=== PATIENT | male | born 1950 | race Caucasian/White ===

== ENCOUNTER 2023-08-05 06:04 | Day surgery (SDC) | payer MEDICAID, SELFPAY ==
[2023-06-12 09:39] VITALS: BMI 27.8
[2023-06-12 10:20] LABS: % Basophils 0.8 % (0-2); % Eosinophils 5.7 % (0-6); % Immature Granulocytes 0.2 % (0-0.5); % Lymphocytes 30.3 % (20.5-51.1); Absolute Eosinophils 0.3 10^3/uL (0-0.7); Absolute Lymphocytes 1.5 10^3/uL (1.2-3.4); Absolute Monocytes 0.6 10^3/uL (0.1-0.6); Absolute Neutrophils 2.7 10^3/uL (1.4-6.5); Hematocrit 44.1 % (39.0-52.0); Hemoglobin 15.2 g/dL (13.0-18.0); Mean Corp Hgb Conc. 34.5 g/dL (33.0-37.0); Mean Corpuscular Hgb 30.2 pg (27.0-31.0); Mean Corpuscular Volume 87.5 fL (80.0-94.0); Nucleated Red Blood Cells % 0 % (-); Platelet Count 176 10^3/uL (130-400); Red Blood Cell Count 5.04 10^6/uL (4.70-6.10); Red Cell Dist. Width 13.7 % (11.5-14.5); White Blood Cell Count 5.1 10^3/uL (4.8-10.8)
[2023-06-12 10:25] LABS: INR 1.45; PT 17.5 Sec (11.4-14.6)
[2023-06-12 10:30] LABS: ALT (SGPT) 18 U/L (0-50); AST (SGOT) 31 U/L (17-59); Albumin 4.5 g/dl (3.5-5.0); Alkaline Phosphatase 63 U/L (38-126); Blood Urea Nitrogen 14 mg/dl (9-20); Calcium 9.4 mg/dl (8.4-10.2); Carbon Dioxide 25 mmol/L (22-30); Chloride 104 mmol/L (98-107); Estimated Creatinine Clearance 89 ml/min; Glucose 106 mg/dl (70-99); Sodium 137 mmol/L (135-145); Total Protein 6.9 g/dl (6.3-8.2); eGFR > 60.00
[2023-06-12 10:35] LABS: Potassium 4.2 mmol/L (3.5-5.1)
[2023-06-12 12:43] LABS: Glycohemoglobin (HgbA1c) 6.1 % (4.0-5.6)
[2023-07-29 10:42] VITALS: BMI 27.1
[2023-07-29 11:21] LABS: % Basophils 0.5 % (0-2); % Eosinophils 3.9 % (0-6); % Immature Granulocytes 0.3 % (0-0.5); % Lymphocytes 24.2 % (20.5-51.1); % Monocytes 9.6 % (1.7-9.3); % Neutrophils 61.5 % (42.2-75.2); Absolute Eosinophils 0.3 10^3/uL (0-0.7); Absolute Lymphocytes 1.6 10^3/uL (1.2-3.4); Absolute Monocytes 0.6 10^3/uL (0.1-0.6); Hematocrit 49.5 % (39.0-52.0); Hemoglobin 16.5 g/dL (13.0-18.0); Mean Corp Hgb Conc. 33.3 g/dL (33.0-37.0); Mean Corpuscular Hgb 29.9 pg (27.0-31.0); Mean Corpuscular Volume 89.7 fL (80.0-94.0); Mean Platelet Volume 10.2 fL (7.4-10.4); Nucleated Red Blood Cells % 0 % (-); Platelet Count 180 10^3/uL (130-400); Red Blood Cell Count 5.52 10^6/uL (4.70-6.10); Red Cell Dist. Width 13.5 % (11.5-14.5); White Blood Cell Count 6.5 10^3/uL (4.8-10.8)
[2023-07-29 11:30] LABS: INR 1.42; PT 17.4 Sec (11.4-14.6)
--- NOTE | 2023-07-29 11:47 | HPS.HSE ---
Family Physician
-
Family Physician: Madeline Peoples, DO
Chief Complaint
-
AVJ ablation
History of Present Illness
73yo male with a [id number] score of 4 secondary to age, HTN, CAD
and borderline diabetes. Additional cardiac history includes permanent
atrial fibrillation, active tobacco abuse, as well as [employer] Emeterio Biv PPM placed
in [facility] in 2015. He has been experiencing intermittent and consistent
chest discomfort radiating into neck with dyspnea on exertion. Lexiscan
Myoview stress test was completed February 2023 which revealed no
evidence of scar nor ischemia.
Regarding his permanent atrial fibrillation, he has undergone
approximately 30 cardioversions as well as two ablations in 2009
and 2011. These were cryoablations per report. He is currently
maintained on digoxin and carvedilol and anticoagulated with
Xarelto which he is tolerating. Recent echocardiogram revealed
normal biventricular size and systolic function with LVEF 50%.
Device interrogation revealed no atrial lead and potential need for
device upgrade in addition to maintain AV synchrony. AVJ ablation
is advised to allow 100% biventricular pacing and better rate
control. The patient and family, who is translating, are agreeable
to this, and he currently denies chest pain, shortness of breath,
palpitations, fever, chills, nausea, vomiting, or diarrhea at
present.
Medical History
Past Medical History
Past Medical History: Reports Other (see below)
Additional Past Medical History:
1. Persistent symptomatic atrial fibrillation.
2. Hypertension.
3. Hyperlipidemia.
4. Coronary artery disease with recent Myoview stress February 2023
without evidence of ischemia nor scar.�
5. St. Emeterio Biv PPM 2016.
6. Active tobacco abuse.
7. Borderline diabetes.
8. Depression/anxiety.
�
�
Past Surgical History: Reports Other (see below)
Additional Past Surgical History:
Cardioversion approximately x3,
PVI x2 2009 and 2012.�
Social History
Tobacco: Smoker
Alcohol: None
Family History
Family History: Not pertinent
Allergies / Home Medications
Allergies reflects when Allergies were last updated in [employer].
Home Medications with original date entered in [employer]
Allergy/Medication List:
NKDA
HOME MEDICATIONS:��
1. Carvedilol 6.25 mg b.i.d.�
2. Digoxin 250 mcg at bedtime.
3. Paroxetine 20 mg at bedtime.
4. Xarelto 20 mg at bedtime.
Review of Systems
-
A 12 point ROS was completed and negative except as noted: Yes
Physical Exam
Physical Exam
General: Well Developed and Well Nourished
HEENT: NormoCephalic and Anicteric
Respiratory: Clear
Cardiac: S1/S2 and Regular Rhythm
Musculoskeletal: Edema, Left Lower Extremity (varicosities, non-pitting, calf non-tender)
Skin: Dry
Neuro: AO x 3 and Cranial Nerves Intact
Laboratory Results
-
07/29/23 11:08
Laboratory Results
PT 17.4 Sec (11.4-14.6) H 07/29/23 11:08
INR 1.42 07/29/23 11:08
Total Bilirubin 1.0 mg/dl (0.2-1.3) 06/12/23 10:04
AST 31 U/L (17-59) 06/12/23 10:04
ALT 18 U/L (0-50) 06/12/23 10:04
Alkaline Phosphatase 63 U/L (38-126) 06/12/23 10:04
Impression/Plan
-
IMPRESSION AND PLAN:� Persistent, symptomatic atrial fibrillation.
St. Emeterio biventricular permanent pacemaker placed in 2016.
Atrioventricular junction ablation proposed to allow 100%
biventricular pacing and better rate control, possible need for
device upgrade. Benefits and risks have been discussed with
patient's family. These risks are understood. They wished to
proceed.�
[2023-07-29 13:02] LABS: ALT (SGPT) 19 U/L (0-50); AST (SGOT) 30 U/L (17-59); Albumin 4.5 g/dl (3.5-5.0); Alkaline Phosphatase 62 U/L (38-126); Blood Urea Nitrogen 17 mg/dl (9-20); Calcium 9.8 mg/dl (8.4-10.2); Carbon Dioxide 23 mmol/L (22-30); Chloride 106 mmol/L (98-107); Estimated Creatinine Clearance 92 ml/min; Glucose 112 mg/dl (70-99); Magnesium 2.1 mg/dl (1.6-2.3); Potassium 4.7 mmol/L (3.5-5.1); Sodium 140 mmol/L (135-145); Total Bilirubin 1.3 mg/dl (0.2-1.3); Total Protein 7.3 g/dl (6.3-8.2); eGFR > 60.00
[2023-08-05] VITALS (11 sets, daily range): BP systolic 111–145; BP diastolic 75–88
--- NOTE | 2023-08-05 09:14 | ITS.CL.ABL ---
Director Hair - Ablation
Ablation
Procedure Report:
ELECTROPHYSIOLOGY ABLATION REPORT
Date of procedure: August 05, 2023
Referring: Dr. Luis Antonio Epstein
INDICATION: Atrial fibrillation with rapid response
HISTORY:
Prior history of permanent atrial fibrillation without any atrial lead placed and biventricular pacemaker placed in 2015 who presents for AVJ ablation
'TIME-OUT': called and confirmed.
SEDATION/ANESTHESIA:
PROCEDURE:
(1) The Duque biventricular pacemaker was interrogated and reprogrammed to VVI@50 ppm. Device thresholds were determined prior to ablation demonstrating lead thresholds in the RV lead of 1.0 and 0.5 ms and in the LV lead of ring to M2 of 0.75 at
0.5 ms. Thresholds are stable post procedure. Post procedure the patient was programmed to VVIR 70-120 beats a minute.
(2) under ultrasound guidance the right femoral vein was accessed with an 8 [place]ian short sheath. The right atrium was markedly dilated and we exchanged the short sheath for a 10 [place]ian steerable sheath over a wire. A deflectable-tip
mapping/ablation catheter was advanced to the medial tricuspid annulus region where a HIS potential identified. The catheter was slightly withdrawn from this location to a site more proximal, about fdc between the HIS recording position and
that of the coronary sinus os. At this location, a small HIS potential was evident along with large amplitude atrial deflections and a relatively small ventricular electrogram.
Radiofrequency energy was applied at this site using a temperature-controlledsystem. 5 seconds after the onset of power delivery, an accelerated junctional rhythm occurred followed by deceleration and heart block. This RF application (max power
set: 70 W, Max temperature set: 50 degrees was continued for 15�30 seconds for a total of 4 minutes of RF time. At the conclusion of this, no escape rhythm was present. The Duque biventricular pacemaker was interrogated and found to have stable
function compared to the pre-ablation findings.
Device: Duque biventricular pacemaker placed 2015
RA: No atrial lead
RV: 663 ohms, 11 mV sensing, 1.0@0.5 ms capture threshold
LV: 563 ohms, , 0.75@0.5 ms capture threhold
Pacing reprogrammed to VVIR@70 -120 ppm.
Detection was reprogrammed ON.
COMPLICATIONS: None
SUMMARY: Status post successful AVJ ablation
RECOMMENDATIONS:
1. Can consider stopping digoxin and would consider sleep study
2. At bed 4 hours and consider same-day discharge
Copy to:Luis Antonio Egan
== END 2023-08-05 12:45 | disposition home or self-care (01) ==
LOC: CATH 06:04
PROVIDERS: ATTENDING PHYSICIAN Internal Medicine Cardiovascular Disease; FAMILY PHYSICIAN Internal Medicine; OTHER PHYSICIAN Internal Medicine Cardiovascular Disease
DX: I48.19 Other persistent atrial fibrillation (principal); I10 Essential (primary) hypertension; E78.5 Hyperlipidemia, unspecified; I25.10 Atherosclerotic heart disease of native coronary artery without angina pectoris; Z95.0 Presence of cardiac pacemaker; F17.200 Nicotine dependence, unspecified, uncomplicated; Z79.01 Long term (current) use of anticoagulants
CPT/HCPCS: C1733; C1766; 36415; 80053; 83036; 83735; 85025; 85610; 93005; 93650